=== PATIENT | female | born 1955 | race Caucasian/White ===

== ENCOUNTER 2018-05-13 07:07 | Day surgery (SDC) | payer OTHER ==
[~2018-05-13 07:07] MED LIST: METOCLOPRAMIDE 10 MG INJ; ONDANSETRON 4 MG INJ; SUGAMMADEX SODIUM 200 MG/2 ML VIAL IV
[2018-05-13] MEDS ORDERED: SOD CHLORIDE 0.9% 1,000 ML IV (09:30)
[2018-05-13] MEDS: CEFAZOLIN 2 GM/50 ML (PMX) 50 ML IVPB (09:30)
[2018-05-13] MEDS ORDERED: FENTAnyl 50 MCG/ML VIAL (12:18)
[2018-05-13] MEDS ORDERED: DEXAMETHASONE 4 MG/ML 1 ML INJ (12:19)
[2018-05-13] MEDS ORDERED: MIDAZOLAM 1 MG/ML 2 ML INJ (12:19)
[2018-05-13] MEDS ORDERED: LIDOCAINE 2% (SDV) 5 ML INJ (12:19)
[2018-05-13] MEDS ORDERED: PROPOFOL 20 ML (12:19)
[2018-05-13] MEDS ORDERED: CEFAZOLIN 1 GM INJ (12:20)
[2018-05-13] MEDS: BUPIVACAINE 0.25% (MPF) 30 ML INJ (13:34)
[2018-05-13] MEDS ORDERED: hydrALAzine 20 MG INJ IV (14:30)
[2018-05-13] MEDS ORDERED: IPRATROPIUM (NEB) 0.5 MG/2.5 ML AMP HHN (14:30)
[2018-05-13] MEDS ORDERED: LABETALOL HCL 20MG INJ IV (14:30)
[2018-05-13] MEDS ORDERED: FENTAnyl 50 MCG/ML VIAL IV ×2 (14:30)
[2018-05-13] MEDS ORDERED: METOCLOPRAMIDE 10 MG INJ IV (14:30)
[2018-05-13] MEDS ORDERED: HYDROmorphONE 1 MG/5 ML IV SYRINGE IV (14:30)
[2018-05-13] MEDS ORDERED: DIPHENHYDRAMINE 50 MG INJ IV (14:30)
[2018-05-13] MEDS ORDERED: MEPERIDINE 25 MG INJ IV (14:30)
[2018-05-13] MEDS: ONDANSETRON 4 MG INJ IV (14:34)
[2018-05-13] MEDS: HYDROmorphONE 1 MG/5 ML IV SYRINGE IV (14:34)
[2018-05-13] MEDS: HYDROCODONE/APAP (5/325) TAB PO (15:26)
== END 2018-05-13 16:06 | disposition home or self-care (01) ==
LOC: SDS 07:07
DX: K81.1 Chronic cholecystitis (principal); K21.9 Gastro-esophageal reflux disease without esophagitis; G62.9 Polyneuropathy, unspecified; Z87.891 Personal history of nicotine dependence
CPT/HCPCS: 47562; 88304

== ENCOUNTER 2019-03-03 17:30 | Inpatient (IN) | payer OTHER ==
[2019-03-03] MEDS: ONDANSETRON 4 MG INJ IV (21:43)
[2019-03-03] MEDS: SOD CHLORIDE 0.9% 500 ML IV (21:44)
[2019-03-03] MEDS: morphine 4 MG/ML VIAL IV (21:44)
[2019-03-03 21:49] LABS: ADD MAN DIFF? NO
[2019-03-03 21:55] LABS: BASOPHIL # 0.1 10^3/ul (0.0-0.1); BASOPHILS % 0.6 % (0.0-2.0); EOSINOPHILS # 0.1 10^3/ul (0.0-0.5); EOSINOPHILS % 0.5 % (0.0-7.0); HEMATOCRIT 38.5 % (37.0-47.0); HEMOGLOBIN 12.3 g/dl (12.0-16.0); LYMPHOCYTES # 1.6 10^3/ul (0.8-2.9); MEAN CORPUSCULAR HEMOGLOBIN 27.1 pg (29.0-33.0); MEAN CORPUSCULAR HGB CONC 31.9 g/dl (32.0-37.0); MEAN CORPUSCULAR VOLUME 84.8 fl (82.0-101.0); MONOCYTE # 1.5 10^3/ul (0.3-0.9); MONOCYTES % 11.1 % (0.0-11.0); NEUTROPHIL # 10.1 10^3/ul (1.6-7.5); NEUTROPHILS % 75.4 % (39.0-77.0); PLATELET COUNT 296 10^3/UL (140-415); RED BLOOD COUNT 4.54 10^6/ul (4.20-5.40); RED CELL DISTRIBUTION WIDTH 14.4 % (11.5-14.5)
[2019-03-03 21:55] LABS: WHITE BLOOD COUNT 13.5 10^3/ul (4.8-10.8)
[2019-03-03 22:03] LABS: ADD UMIC YES; UR ASCORBIC ACID NEGATIVE (NEGATIVE); UR BILIRUBIN (Dip) NEGATIVE (NEGATIVE); UR BLOOD (Dip) 1+ mg/dL (NEGATIVE); UR CLARITY CLEAR (CLEAR); UR COLOR AMBER (YELLOW); UR GLUCOSE (Dip) NEGATIVE (NEGATIVE); UR KETONES (Dip) TRACE mg/dL (NEGATIVE); UR LEUKOCYTE ESTERASE (Dip) NEGATIVE Leu/ul (NEGATIVE); UR MUCUS MODERATE /HPF (NONE SEEN); UR NITRITE (Dip) POSITIVE (NEGATIVE); UR RBC 3 /HPF (0-5); UR SPECIFIC GRAVITY (Dip) 1.014 (1.003-1.030); UR SQUAMOUS EPITHELIAL CELL FEW /HPF (FEW); UR TOTAL PROTEIN (Dip) NEGATIVE (NEGATIVE); UR UROBILINOGEN (Dip) 2+ mg/dL (NEGATIVE); UR WBC 8 /HPF (0-5)
[2019-03-03 22:14] LABS: ALBUMIN 4.4 g/dl (3.3-4.9); ALKALINE PHOSPHATASE 135 IU/L (42-121); ANION GAP 9 (5-13); ASPARTATE AMINO TRANSFERASE 25 IU/L (15-46); BILIRUBIN,INDIRECT 0.7 mg/dl (0-1.1); BILIRUBIN,TOTAL 0.7 mg/dl (0.2-1.3); BLOOD UREA NITROGEN 17 mg/dl (7-20); CALCIUM 10.1 mg/dl (8.4-10.2); CARBON DIOXIDE 27 mmol/L (21-31); CHLORIDE 105 mmol/L (97-110); CREATININE 0.81 mg/dl (0.44-1.00); Estimated GFR > 60 mL/min (>60); GLUCOSE 113 mg/dl (70-220); LIPASE 114 U/L (23-300); POTASSIUM 3.7 mmol/L (3.5-5.1); SODIUM 141 mmol/L (135-144); TOTAL PROTEIN 8.8 g/dl (6.1-8.1)
[2019-03-03 22:15] LABS: ALANINE AMINOTRANSFERASE < 6 IU/L (13-69)
[2019-03-03] MEDS: CEFTRIAXONE 1 GM/50 ML (PMX) 50 ML IVPB (23:41)
[2019-03-04] MEDS ORDERED: ONDANSETRON 4 MG INJ IV (01:30)
[2019-03-04] MEDS ORDERED: NACL 0.9% 3 ML SYG IV (01:30)
[2019-03-04] MEDS ORDERED: ACETAMINOPHEN 325 MG TAB PO (01:30)
[2019-03-04] MEDS: HYDROCODONE/APAP (5/325) TAB PO ×3 (01:50→21:08)
[2019-03-04] MEDS: HEPARIN 5,000 UNIT/1 ML VIAL SC ×2 (08:16→21:22)
[2019-03-04] MEDS: PANTOPRAZOLE (EC) 40 MG TAB PO (08:16)
[2019-03-04 08:29] LABS: ADD MAN DIFF? NO
[2019-03-04 08:44] LABS: BASOPHILS % 0.4 % (0.0-2.0); EOSINOPHILS # 0.2 10^3/ul (0.0-0.5); EOSINOPHILS % 1.5 % (0.0-7.0); HEMATOCRIT 36.9 % (37.0-47.0); HEMOGLOBIN 11.6 g/dl (12.0-16.0); LYMPHOCYTES # 1.4 10^3/ul (0.8-2.9); LYMPHOCYTES % 13.6 % (15.0-51.0); MEAN CORPUSCULAR HEMOGLOBIN 27.1 pg (29.0-33.0); MEAN CORPUSCULAR HGB CONC 31.4 g/dl (32.0-37.0); MEAN CORPUSCULAR VOLUME 86.2 fl (82.0-101.0); MEAN PLATELET VOLUME 10.2 fl (7.4-10.4); MONOCYTE # 1.2 10^3/ul (0.3-0.9); MONOCYTES % 11.9 % (0.0-11.0); NEUTROPHIL # 7.4 10^3/ul (1.6-7.5); PLATELET COUNT 260 10^3/UL (140-415); RED BLOOD COUNT 4.28 10^6/ul (4.20-5.40); RED CELL DISTRIBUTION WIDTH 14.6 % (11.5-14.5)
[2019-03-04 08:44] LABS: WHITE BLOOD COUNT 10.2 10^3/ul (4.8-10.8)
[2019-03-04 08:51] LABS: ALBUMIN 3.8 g/dl (3.3-4.9); ALKALINE PHOSPHATASE 120 IU/L (42-121); ANION GAP 8 (5-13); ASPARTATE AMINO TRANSFERASE 45 IU/L (15-46); BILIRUBIN,INDIRECT 0.6 mg/dl (0-1.1); BILIRUBIN,TOTAL 0.6 mg/dl (0.2-1.3); BLOOD UREA NITROGEN 16 mg/dl (7-20); CALCIUM 9.6 mg/dl (8.4-10.2); CARBON DIOXIDE 29 mmol/L (21-31); CHLORIDE 106 mmol/L (97-110); CHOL/HDL RATIO 4.3 RATIO; CHOLESTEROL 191 mg/dl (100-200); CREATININE 0.78 mg/dl (0.44-1.00); Estimated GFR > 60 mL/min (>60); GLUCOSE 109 mg/dl (70-220); HDL CHOLESTEROL 44 mg/dl (35-98); LDL CHOLESTEROL,CALCULATED 122 mg/dl; MAGNESIUM 2.2 mg/dl (1.7-2.5); PHOSPHORUS 4.1 mg/dl (2.5-4.9); POTASSIUM 3.8 mmol/L (3.5-5.1); SODIUM 143 mmol/L (135-144); TOTAL PROTEIN 7.6 g/dl (6.1-8.1); TRIGLYCERIDES 123 mg/dl (0-149)
[2019-03-04 09:06] LABS: ALANINE AMINOTRANSFERASE < 6 IU/L (13-69)
[2019-03-04 11:48] LABS: HEMOGLOBIN A1C 5.9 % (0-5.9)
[2019-03-04] MEDS: ATORVASTATIN 20 MG TAB PO (21:08)
[2019-03-05] MEDS: CEFTRIAXONE 1 GM/50 ML (PMX) 50 ML IVPB ×2 (00:34→09:04)
[2019-03-05 05:56] LABS: ADD MAN DIFF? NO
[2019-03-05 06:10] LABS: BASOPHIL # 0.1 10^3/ul (0.0-0.1); BASOPHILS % 0.6 % (0.0-2.0); EOSINOPHILS # 0.2 10^3/ul (0.0-0.5); EOSINOPHILS % 1.8 % (0.0-7.0); HEMATOCRIT 36.3 % (37.0-47.0); HEMOGLOBIN 11.5 g/dl (12.0-16.0); LYMPHOCYTES # 1.6 10^3/ul (0.8-2.9); LYMPHOCYTES % 15.4 % (15.0-51.0); MEAN CORPUSCULAR HEMOGLOBIN 27.2 pg (29.0-33.0); MEAN CORPUSCULAR HGB CONC 31.7 g/dl (32.0-37.0); MEAN CORPUSCULAR VOLUME 85.8 fl (82.0-101.0); MEAN PLATELET VOLUME 10.1 fl (7.4-10.4); MONOCYTE # 1.1 10^3/ul (0.3-0.9); MONOCYTES % 11.2 % (0.0-11.0); NEUTROPHIL # 7.2 10^3/ul (1.6-7.5); NEUTROPHILS % 70.6 % (39.0-77.0); PLATELET COUNT 280 10^3/UL (140-415); RED BLOOD COUNT 4.23 10^6/ul (4.20-5.40); RED CELL DISTRIBUTION WIDTH 14.6 % (11.5-14.5)
[2019-03-05 06:10] LABS: WHITE BLOOD COUNT 10.2 10^3/ul (4.8-10.8)
[2019-03-05 06:40] LABS: ANION GAP 7 (5-13); BLOOD UREA NITROGEN 14 mg/dl (7-20); CALCIUM 9.8 mg/dl (8.4-10.2); CARBON DIOXIDE 30 mmol/L (21-31); CHLORIDE 106 mmol/L (97-110); CREATININE 0.79 mg/dl (0.44-1.00); Estimated GFR > 60 mL/min (>60); GLUCOSE 115 mg/dl (70-220); MAGNESIUM 2.2 mg/dl (1.7-2.5); PHOSPHORUS 4.1 mg/dl (2.5-4.9); POTASSIUM 4.4 mmol/L (3.5-5.1); SODIUM 143 mmol/L (135-144)
[2019-03-05 07:05] LABS: CARCINOEMBRYONIC ANTIGEN 2.2 ng/ml (0.0-5.0)
[2019-03-05 07:09] LABS: CANCER ANTIGEN 19-9 6.9 U/ml (0.0-37.0)
[2019-03-05] MEDS: HEPARIN 5,000 UNIT/1 ML VIAL SC ×2 (09:00→20:24)
[2019-03-05] MEDS: PANTOPRAZOLE (EC) 40 MG TAB PO (09:00)
[2019-03-05] MEDS ORDERED: ONDANSETRON 4 MG INJ IV (15:30)
[2019-03-05] MEDS ORDERED: PROPOFOL 20 ML ×2 (15:42→15:59)
[2019-03-05] MEDS ORDERED: LIDOCAINE 2% (SDV) 5 ML INJ (15:42)
[2019-03-05] MEDS: morphine 2 MG INJ IV (16:21)
[2019-03-05] MEDS ORDERED: HYDROmorphONE 1 MG/5 ML IV SYRINGE IV (16:30)
[2019-03-05] MEDS: HYDROCODONE/APAP (5/325) TAB PO (18:25)
[2019-03-05] MEDS: ATORVASTATIN 20 MG TAB PO (20:18)
[2019-03-06] MEDS: morphine 2 MG INJ IV (02:50)
[2019-03-06] MEDS: CEFTRIAXONE 1 GM/50 ML (PMX) 50 ML IVPB (09:08)
[2019-03-06] MEDS: PANTOPRAZOLE (EC) 40 MG TAB PO ×2 (09:08→17:46)
[2019-03-06] MEDS: HEPARIN 5,000 UNIT/1 ML VIAL SC (09:10)
[2019-03-06 11:44] LABS: INR 0.91; PROTIME 12.4 Sec (11.9-14.9)
[2019-03-06] MEDS ORDERED: MAGNESIUM HYDROXIDE 30ML CUP PO (13:30)
[2019-03-06] MEDS: DOCUSATE SODIUM 100 MG CAP PO ×2 (13:44→20:50)
[2019-03-06] MEDS: SENNA TAB PO ×2 (13:44→20:50)
[2019-03-06] MEDS: HYDROCODONE/APAP (5/325) TAB PO ×2 (13:53→20:50)
[2019-03-06] MEDS: ATORVASTATIN 20 MG TAB PO (20:49)
[2019-03-07] MEDS: PANTOPRAZOLE (EC) 40 MG TAB PO ×2 (05:19→18:03)
[2019-03-07] MEDS: CEFTRIAXONE 1 GM/50 ML (PMX) 50 ML IVPB (08:42)
[2019-03-07] MEDS: SENNA TAB PO ×2 (08:48→20:53)
[2019-03-07] MEDS: DOCUSATE SODIUM 100 MG CAP PO ×2 (08:48→20:53)
[2019-03-07] MEDS: LIDOCAINE 1% (MPF) 5 ML VIAL (13:06)
[2019-03-07] MEDS: MIDAZOLAM 1 MG/ML 2 ML INJ (13:13)
[2019-03-07] MEDS: FENTAnyl 50 MCG/ML VIAL (13:15)
[2019-03-07] MEDS: SOD CHLORIDE 0.9% 500 ML (13:17)
[2019-03-07] MEDS: morphine 2 MG INJ IV (17:34)
[2019-03-07] MEDS: ATORVASTATIN 20 MG TAB PO (20:53)
[2019-03-08] MEDS: HYDROCODONE/APAP (5/325) TAB PO (01:39)
[2019-03-08] MEDS: PANTOPRAZOLE (EC) 40 MG TAB PO (06:03)
[2019-03-08] MEDS: CEFTRIAXONE 1 GM/50 ML (PMX) 50 ML IVPB ×2 (09:00→10:58)
[2019-03-08] MEDS: SENNA TAB PO (10:58)
[2019-03-08] MEDS: DOCUSATE SODIUM 100 MG CAP PO (10:58)
== END 2019-03-08 14:12 | disposition home or self-care (01) | DRG 842 ==
LOC: 2NE 03-04 00:28 → E/R 17:30 → 2NE 03-04 00:06
PROC: 0DB68ZX Excision of Stomach, Via Natural or Artificial Opening Endoscopic, Diagnostic (ICD-10-PCS; principal; 2019-03-05 15:15)
PROC: 0DBV3ZX Excision of Mesentery, Percutaneous Approach, Diagnostic (ICD-10-PCS; 2019-03-05 15:15)
DX: C85.93 Non-Hodgkin lymphoma, unspecified, intra-abdominal lymph nodes (principal); K29.50 Unspecified chronic gastritis without bleeding; E66.9 Obesity, unspecified; E78.5 Hyperlipidemia, unspecified; R63.4 Abnormal weight loss; K21.9 Gastro-esophageal reflux disease without esophagitis; R12 Heartburn; Z68.29 Body mass index [BMI] 29.0-29.9, adult; F17.210 Nicotine dependence, cigarettes, uncomplicated
CPT/HCPCS: 36415; 74176; 77012; 80048; 80053; 80061; 81001; 82378; 83036; 83690; 83735; 84100; 84443; 85025; 85610; 85730; 86301; 87086; 88305; 88307; 88312; 88313; 96374; 96375; 99285-25

== ENCOUNTER 2019-04-08 09:48 | Day surgery (SDC) | payer OTHER ==
[2019-04-08] MEDS: SOD CHLORIDE 0.9% 1,000 ML IV (12:01)
[2019-04-08] MEDS ORDERED: LIDOCAINE 1% (MPF) 5 ML VIAL ×2 (12:49→13:39)
[2019-04-08] MEDS ORDERED: FENTAnyl 50 MCG/ML VIAL (13:18)
== END 2019-04-08 15:45 | disposition home or self-care (01) ==
LOC: SDS 09:48
DX: K55.069 Acute infarction of intestine, part and extent unspecified (principal)
CPT/HCPCS: 49180; 77012; 88307; 88313

== ENCOUNTER 2019-05-02 09:50 | Inpatient (IN) | payer OTHER ==
[2019-05-02] MEDS: ONDANSETRON 4 MG INJ IV (10:20)
[2019-05-02] MEDS: morphine 4 MG/ML VIAL IV ×2 (10:20→11:54)
[2019-05-02 10:37] LABS: ADD MAN DIFF? NO
[2019-05-02 10:38] LABS: WHITE BLOOD COUNT 7.9 10^3/ul (4.8-10.8)
[2019-05-02 10:38] LABS: BASOPHILS % 0.5 % (0.0-2.0); EOSINOPHILS # 0.1 10^3/ul (0.0-0.5); EOSINOPHILS % 1.1 % (0.0-7.0); HEMATOCRIT 32.6 % (37.0-47.0); HEMOGLOBIN 10.5 g/dl (12.0-16.0); LYMPHOCYTES # 1.3 10^3/ul (0.8-2.9); LYMPHOCYTES % 16.1 % (15.0-51.0); MEAN CORPUSCULAR HEMOGLOBIN 27.1 pg (29.0-33.0); MEAN CORPUSCULAR HGB CONC 32.2 g/dl (32.0-37.0); MEAN CORPUSCULAR VOLUME 84.2 fl (82.0-101.0); MEAN PLATELET VOLUME 10.1 fl (7.4-10.4); MONOCYTE # 0.7 10^3/ul (0.3-0.9); MONOCYTES % 9.3 % (0.0-11.0); NEUTROPHIL # 5.7 10^3/ul (1.6-7.5); NEUTROPHILS % 72.7 % (39.0-77.0); PLATELET COUNT 228 10^3/UL (140-415); RED BLOOD COUNT 3.87 10^6/ul (4.20-5.40); RED CELL DISTRIBUTION WIDTH 14.7 % (11.5-14.5)
[2019-05-02 11:06] LABS: ANION GAP 8 (5-13); Estimated GFR > 60 mL/min (>60)
[2019-05-02 11:09] LABS: ALANINE AMINOTRANSFERASE 7 IU/L (13-69); ALBUMIN 3.9 g/dl (3.3-4.9); ALBUMIN/GLOBULIN RATIO 1.02; ALKALINE PHOSPHATASE 93 IU/L (42-121); ASPARTATE AMINO TRANSFERASE 19 IU/L (15-46); BILIRUBIN,INDIRECT 0.4 mg/dl (0-1.1); BILIRUBIN,TOTAL 0.4 mg/dl (0.2-1.3); BLOOD UREA NITROGEN 15 mg/dl (7-20); CALCIUM 9.2 mg/dl (8.4-10.2); CARBON DIOXIDE 29 mmol/L (21-31); CHLORIDE 107 mmol/L (97-110); CREATININE 0.63 mg/dl (0.44-1.00); GLUCOSE 99 mg/dl (70-220); LIPASE 192 U/L (23-300); POTASSIUM 4.1 mmol/L (3.5-5.1); SODIUM 144 mmol/L (135-144); TOTAL PROTEIN 7.7 g/dl (6.1-8.1)
[2019-05-02 11:37] LABS: ADD UMIC NO; UR ASCORBIC ACID NEGATIVE (NEGATIVE); UR BILIRUBIN (Dip) NEGATIVE (NEGATIVE); UR BLOOD (Dip) NEGATIVE (NEGATIVE); UR CLARITY CLEAR (CLEAR); UR COLOR YELLOW (YELLOW); UR GLUCOSE (Dip) NEGATIVE (NEGATIVE); UR KETONES (Dip) NEGATIVE (NEGATIVE); UR LEUKOCYTE ESTERASE (Dip) NEGATIVE Leu/ul (NEGATIVE); UR NITRITE (Dip) NEGATIVE (NEGATIVE); UR RBC 0 /HPF (0-5); UR SQUAMOUS EPITHELIAL CELL FEW /HPF (FEW); UR TOTAL PROTEIN (Dip) NEGATIVE (NEGATIVE); UR UROBILINOGEN (Dip) NEGATIVE (NEGATIVE); UR WBC 3 /HPF (0-5)
[2019-05-02] MEDS ORDERED: ACETAMINOPHEN 325 MG TAB PO ×3 (14:30→16:30)
[2019-05-02] MEDS ORDERED: ONDANSETRON 4 MG INJ IV ×2 (14:30)
[2019-05-02] MEDS: morphine 2 MG INJ IV ×3 (16:09→20:57)
[2019-05-02] MEDS: SOD CHLORIDE 0.9% 1,000 ML IV (16:23)
[2019-05-02] MEDS: FAMOTIDINE 20 MG INJ IV (20:57)
[2019-05-02] MEDS ORDERED: METHADONE (1 MG/1 ML PO SYG) PO (21:00)
[2019-05-02] MEDS ORDERED: METHADONE (1 MG/ML 5 ML PO UD SYG) (22:19)
[2019-05-02] MEDS: METHADONE (1 MG/ML 5 ML PO UD SYG) PO (22:22)
[2019-05-03] MEDS: morphine 2 MG INJ IV ×4 (02:25→19:53)
[2019-05-03] MEDS: METHADONE (1 MG/ML 5 ML PO UD SYG) PO ×6 (02:30→22:30)
[2019-05-03] MEDS: SOD CHLORIDE 0.9% 1,000 ML IV ×2 (05:30→17:58)
[2019-05-03 05:43] LABS: ADD MAN DIFF? NO
[2019-05-03 05:45] LABS: BASOPHIL # 0.1 10^3/ul (0.0-0.1); BASOPHILS % 0.7 % (0.0-2.0); EOSINOPHILS # 0.1 10^3/ul (0.0-0.5); EOSINOPHILS % 1.3 % (0.0-7.0); HEMOGLOBIN 10.9 g/dl (12.0-16.0); LYMPHOCYTES # 0.9 10^3/ul (0.8-2.9); LYMPHOCYTES % 11.7 % (15.0-51.0); MEAN CORPUSCULAR HEMOGLOBIN 26.9 pg (29.0-33.0); MEAN CORPUSCULAR HGB CONC 32.1 g/dl (32.0-37.0); MEAN PLATELET VOLUME 10.3 fl (7.4-10.4); MONOCYTE # 0.6 10^3/ul (0.3-0.9); MONOCYTES % 8.3 % (0.0-11.0); NEUTROPHILS % 77.7 % (39.0-77.0); PLATELET COUNT 229 10^3/UL (140-415); RED BLOOD COUNT 4.05 10^6/ul (4.20-5.40); RED CELL DISTRIBUTION WIDTH 14.6 % (11.5-14.5)
[2019-05-03 05:45] LABS: WHITE BLOOD COUNT 7.7 10^3/ul (4.8-10.8)
[2019-05-03 05:58] LABS: HEMOGLOBIN A1C 5.3 % (0-5.9)
[2019-05-03 06:27] LABS: FREE THYROXINE INDEX (Calc) 3.49 ug/ml (0.65-3.89); T3 UPTAKE 36.7 % (23.5-40.5); T4 (THYROXINE) 9.5 ug/dl (5.5-11.0)
[2019-05-03 06:32] LABS: ALANINE AMINOTRANSFERASE 38 IU/L (13-69); ALBUMIN 3.5 g/dl (3.3-4.9); ALBUMIN/GLOBULIN RATIO 1.09; ALKALINE PHOSPHATASE 229 IU/L (42-121); ANION GAP 10 (5-13); ASPARTATE AMINO TRANSFERASE 158 IU/L (15-46); BILIRUBIN,INDIRECT 0.7 mg/dl (0-1.1); BILIRUBIN,TOTAL 0.7 mg/dl (0.2-1.3); BLOOD UREA NITROGEN 13 mg/dl (7-20); CALCIUM 9.1 mg/dl (8.4-10.2); CARBON DIOXIDE 26 mmol/L (21-31); CHLORIDE 108 mmol/L (97-110); CHOLESTEROL 129 mg/dl (100-200); CREATININE 0.63 mg/dl (0.44-1.00); Estimated GFR > 60 mL/min (>60); GLUCOSE 90 mg/dl (70-220); HDL CHOLESTEROL 42 mg/dl (35-98); LDL CHOLESTEROL,CALCULATED 67 mg/dl; MAGNESIUM 2.1 mg/dl (1.7-2.5); PHOSPHORUS 4.2 mg/dl (2.5-4.9); POTASSIUM 4.2 mmol/L (3.5-5.1); SODIUM 144 mmol/L (135-144); TOTAL PROTEIN 6.7 g/dl (6.1-8.1); TRIGLYCERIDES 98 mg/dl (0-149)
[2019-05-03] MEDS: FAMOTIDINE 20 MG INJ IV ×2 (08:55→21:02)
[2019-05-03] MEDS: HYDROCODONE/APAP (5/325) TAB PO (22:29)
[2019-05-04] MEDS: METHADONE (1 MG/ML 5 ML PO UD SYG) PO ×6 (02:30→22:36)
[2019-05-04] MEDS: SOD CHLORIDE 0.9% 1,000 ML IV ×2 (05:44→17:33)
[2019-05-04] MEDS: FAMOTIDINE 20 MG INJ IV ×2 (09:12→20:40)
[2019-05-04] MEDS: HYDROCODONE/APAP (5/325) TAB PO (11:08)
[2019-05-04 11:20] LABS: ALANINE AMINOTRANSFERASE 19 IU/L (13-69); ALBUMIN 4.1 g/dl (3.3-4.9); ALBUMIN/GLOBULIN RATIO 1.05; ALKALINE PHOSPHATASE 216 IU/L (42-121); ANION GAP 10 (5-13); ASPARTATE AMINO TRANSFERASE 55 IU/L (15-46); BILIRUBIN,INDIRECT 0.5 mg/dl (0-1.1); BILIRUBIN,TOTAL 0.5 mg/dl (0.2-1.3); BLOOD UREA NITROGEN 12 mg/dl (7-20); CALCIUM 9.2 mg/dl (8.4-10.2); CARBON DIOXIDE 27 mmol/L (21-31); CHLORIDE 104 mmol/L (97-110); CREATININE 0.59 mg/dl (0.44-1.00); Estimated GFR > 60 mL/min (>60); GLUCOSE 104 mg/dl (70-220); POTASSIUM 3.8 mmol/L (3.5-5.1); SODIUM 141 mmol/L (135-144)
[2019-05-04 11:22] LABS: PROTIME 12.3 Sec (11.9-14.9)
[2019-05-04 11:23] LABS: PARTIAL THROMBOPLASTIN TIME 32.4 Sec (23.0-35.0)
[2019-05-04] MEDS: MINERAL OIL 30ML CUP PO ×3 (11:45→17:33)
[2019-05-04] MEDS: NA PHOSPHATE/BIPHOS 133 ML ENEMA PR (11:45)
[2019-05-04] MEDS: morphine 2 MG INJ IV ×2 (14:39→20:41)
[2019-05-04] MEDS: HEPARIN 5,000 UNIT/1 ML VIAL SC (20:41)
[2019-05-05] MEDS: MINERAL OIL 30ML CUP PO (00:01)
[2019-05-05] MEDS: METHADONE (1 MG/ML 5 ML PO UD SYG) PO ×4 (02:30→14:26)
[2019-05-05] MEDS: morphine 2 MG INJ IV ×2 (04:37→08:55)
[2019-05-05] MEDS: SOD CHLORIDE 0.9% 1,000 ML IV (04:38)
[2019-05-05 06:04] LABS: ADD MAN DIFF? NO
[2019-05-05 06:16] LABS: BASOPHIL # 0.1 10^3/ul (0.0-0.1); BASOPHILS % 0.6 % (0.0-2.0); EOSINOPHILS # 0.2 10^3/ul (0.0-0.5); EOSINOPHILS % 2.7 % (0.0-7.0); HEMATOCRIT 34.6 % (37.0-47.0); HEMOGLOBIN 11.1 g/dl (12.0-16.0); LYMPHOCYTES # 1.2 10^3/ul (0.8-2.9); LYMPHOCYTES % 14.7 % (15.0-51.0); MEAN CORPUSCULAR HEMOGLOBIN 26.6 pg (29.0-33.0); MEAN CORPUSCULAR HGB CONC 32.1 g/dl (32.0-37.0); MEAN PLATELET VOLUME 10.5 fl (7.4-10.4); MONOCYTE # 0.9 10^3/ul (0.3-0.9); MONOCYTES % 11.9 % (0.0-11.0); NEUTROPHIL # 5.5 10^3/ul (1.6-7.5); NEUTROPHILS % 69.7 % (39.0-77.0); PLATELET COUNT 240 10^3/UL (140-415); RED BLOOD COUNT 4.17 10^6/ul (4.20-5.40); RED CELL DISTRIBUTION WIDTH 14.6 % (11.5-14.5)
[2019-05-05 06:16] LABS: WHITE BLOOD COUNT 7.8 10^3/ul (4.8-10.8)
[2019-05-05 06:49] LABS: ANION GAP 9 (5-13); BLOOD UREA NITROGEN 9 mg/dl (7-20); CALCIUM 8.9 mg/dl (8.4-10.2); CARBON DIOXIDE 28 mmol/L (21-31); CHLORIDE 106 mmol/L (97-110); CREATININE 0.62 mg/dl (0.44-1.00); Estimated GFR > 60 mL/min (>60); GLUCOSE 102 mg/dl (70-220); POTASSIUM 3.7 mmol/L (3.5-5.1); SODIUM 143 mmol/L (135-144)
[2019-05-05] MEDS: FAMOTIDINE 20 MG INJ IV ×2 (08:09→21:08)
[2019-05-05] MEDS: HEPARIN 5,000 UNIT/1 ML VIAL SC (08:10)
[2019-05-05] MEDS: ONDANSETRON 4 MG INJ IV (11:09)
[2019-05-05] MEDS ORDERED: ONDANSETRON 4 MG INJ IV (13:30)
[2019-05-05] MEDS ORDERED: PROPOFOL 20 ML (13:31)
[2019-05-05] MEDS ORDERED: ROCURONIUM 50 MG INJ (13:31)
[2019-05-05] MEDS ORDERED: SUCCINYLCHOLINE CHLORIDE 100 MG/5 ML SYG IV (13:31)
[2019-05-05] MEDS ORDERED: ONDANSETRON 4 MG INJ (13:32)
[2019-05-05] MEDS ORDERED: MIDAZOLAM 1 MG/ML 2 ML INJ (13:32)
[2019-05-05] MEDS ORDERED: KETOROLAC 30 MG INJ ×2 (13:32→14:57)
[2019-05-05] MEDS ORDERED: CEFAZOLIN 1 GM INJ (13:34)
[2019-05-05] MEDS ORDERED: metroNIDAZOLE 500 MG/NS (PMX) 100 ML IVPB (13:46)
[2019-05-05] MEDS ORDERED: NEOSTIGMINE 3 MG/3 ML SYRINGE (15:08)
[2019-05-05] MEDS ORDERED: GLYCOPYRROLATE 0.4 MG INJ (15:08)
[2019-05-05] MEDS: HYDROmorphONE 1 MG/5 ML IV SYRINGE IV ×2 (15:54→16:01)
[2019-05-05] MEDS: FENTAnyl 50 MCG/ML VIAL IV ×2 (15:54→16:00)
[2019-05-05] MEDS ORDERED: ACETAMINOPHEN 325 MG TAB PO (16:00)
[2019-05-05] MEDS ORDERED: NALOXONE (0.4 MG/ML) INJ IV (16:00)
[2019-05-05] MEDS: morphine 1 MG/ML 30 ML (PCA) IV (16:32)
[2019-05-05] MEDS: D5W-0.45 NACL + KCL 20 MEQ 1,000 ML IV (16:54)
[2019-05-05] MEDS: CEFAZOLIN 2 GM/50 ML (PMX) 50 ML IVPB (16:54)
[2019-05-05] MEDS: metroNIDAZOLE 500 MG/NS (PMX) 100 ML IVPB (17:38)
[2019-05-06] MEDS: CEFAZOLIN 2 GM/50 ML (PMX) 50 ML IVPB ×2 (00:02→08:19)
[2019-05-06] MEDS: metroNIDAZOLE 500 MG/NS (PMX) 100 ML IVPB ×2 (00:43→08:58)
[2019-05-06 06:11] LABS: ADD MAN DIFF? NO
[2019-05-06] MEDS: D5W-0.45 NACL + KCL 20 MEQ 1,000 ML IV ×3 (06:15→17:36)
[2019-05-06 06:17] LABS: WHITE BLOOD COUNT 11.5 10^3/ul (4.8-10.8)
[2019-05-06 06:17] LABS: BASOPHILS % 0.3 % (0.0-2.0); EOSINOPHILS % 0.3 % (0.0-7.0); HEMATOCRIT 35.6 % (37.0-47.0); HEMOGLOBIN 11.4 g/dl (12.0-16.0); LYMPHOCYTES # 0.7 10^3/ul (0.8-2.9); LYMPHOCYTES % 6.1 % (15.0-51.0); MEAN CORPUSCULAR HEMOGLOBIN 26.6 pg (29.0-33.0); MEAN CORPUSCULAR VOLUME 83.2 fl (82.0-101.0); MEAN PLATELET VOLUME 10.1 fl (7.4-10.4); MONOCYTES % 8.7 % (0.0-11.0); NEUTROPHIL # 9.7 10^3/ul (1.6-7.5); NEUTROPHILS % 84.3 % (39.0-77.0); PLATELET COUNT 257 10^3/UL (140-415); RED BLOOD COUNT 4.28 10^6/ul (4.20-5.40); RED CELL DISTRIBUTION WIDTH 14.5 % (11.5-14.5)
[2019-05-06 06:45] LABS: MAGNESIUM 1.8 mg/dl (1.7-2.5)
[2019-05-06 06:45] LABS: PHOSPHORUS 4.1 mg/dl (2.5-4.9)
[2019-05-06 06:54] LABS: ANION GAP 8 (5-13); BLOOD UREA NITROGEN 7 mg/dl (7-20); CALCIUM 8.7 mg/dl (8.4-10.2); CARBON DIOXIDE 27 mmol/L (21-31); CHLORIDE 103 mmol/L (97-110); CREATININE 0.59 mg/dl (0.44-1.00); Estimated GFR > 60 mL/min (>60); GLUCOSE 132 mg/dl (70-220); POTASSIUM 3.7 mmol/L (3.5-5.1); SODIUM 138 mmol/L (135-144)
[2019-05-06] MEDS: FAMOTIDINE 20 MG INJ IV ×2 (08:18→21:06)
[2019-05-06] MEDS: morphine 1 MG/ML 30 ML (PCA) IV ×2 (08:26→23:08)
[2019-05-06] MEDS: ONDANSETRON 4 MG INJ IV (11:25)
[2019-05-06 13:50] LABS: HAAIG REFLEX REFLEX FILED
[2019-05-06 13:59] LABS: URIC ACID 3.7 mg/dl (3.1-7.9)
[2019-05-06 13:59] LABS: LACTATE DEHYDROGENASE 1124 IU/L (313-618)
[2019-05-06] MEDS: KETOROLAC 30 MG INJ IV ×2 (14:03→22:26)
[2019-05-06 23:11] LABS: HEPATITIS B SURFACE ANTIGEN NEGATIVE (NEGATIVE)
[2019-05-06 23:29] LABS: HEPATITIS B CORE ANTIBODY NEGATIVE (NEGATIVE); HEPATITIS C VIRAL ANTIBODY NEGATIVE (NEGATIVE)
[2019-05-07] MEDS: D5W-0.45 NACL + KCL 20 MEQ 1,000 ML IV ×2 (05:02→17:50)
[2019-05-07 06:28] LABS: ADD MAN DIFF? NO
[2019-05-07 06:29] LABS: BASOPHILS % 0.3 % (0.0-2.0); EOSINOPHILS # 0.4 10^3/ul (0.0-0.5); EOSINOPHILS % 3.5 % (0.0-7.0); HEMATOCRIT 32.3 % (37.0-47.0); HEMOGLOBIN 10.4 g/dl (12.0-16.0); LYMPHOCYTES # 0.7 10^3/ul (0.8-2.9); LYMPHOCYTES % 6.6 % (15.0-51.0); MEAN CORPUSCULAR HEMOGLOBIN 27.2 pg (29.0-33.0); MEAN CORPUSCULAR HGB CONC 32.2 g/dl (32.0-37.0); MEAN CORPUSCULAR VOLUME 84.6 fl (82.0-101.0); MONOCYTE # 1.2 10^3/ul (0.3-0.9); MONOCYTES % 11.1 % (0.0-11.0); NEUTROPHIL # 8.6 10^3/ul (1.6-7.5); NEUTROPHILS % 78.1 % (39.0-77.0); PLATELET COUNT 249 10^3/UL (140-415); RED BLOOD COUNT 3.82 10^6/ul (4.20-5.40); RED CELL DISTRIBUTION WIDTH 14.6 % (11.5-14.5)
[2019-05-07 06:55] LABS: ANION GAP 7 (5-13); BLOOD UREA NITROGEN 9 mg/dl (7-20); CALCIUM 8.6 mg/dl (8.4-10.2); CARBON DIOXIDE 29 mmol/L (21-31); CHLORIDE 103 mmol/L (97-110); CREATININE 0.57 mg/dl (0.44-1.00); Estimated GFR > 60 mL/min (>60); GLUCOSE 119 mg/dl (70-220); SODIUM 139 mmol/L (135-144)
[2019-05-07 06:58] LABS: PHOSPHORUS 3.1 mg/dl (2.5-4.9)
[2019-05-07 06:58] LABS: MAGNESIUM 1.9 mg/dl (1.7-2.5)
[2019-05-07] MEDS: FAMOTIDINE 20 MG INJ IV ×2 (08:57→20:44)
[2019-05-07] MEDS: morphine 1 MG/ML 30 ML (PCA) IV (11:54)
[2019-05-07] MEDS: KETOROLAC 30 MG INJ IV ×2 (15:57→23:07)
[2019-05-08] MEDS: morphine 1 MG/ML 30 ML (PCA) IV ×2 (02:43→21:41)
[2019-05-08] MEDS: D5W-0.45 NACL + KCL 20 MEQ 1,000 ML IV ×2 (04:03→14:07)
[2019-05-08 06:38] LABS: ADD MAN DIFF? NO
[2019-05-08 06:42] LABS: WHITE BLOOD COUNT 7.6 10^3/ul (4.8-10.8)
[2019-05-08 06:42] LABS: ABNORMAL IP MESSAGE 1; BASOPHILS % 0.3 % (0.0-2.0); EOSINOPHILS # 0.4 10^3/ul (0.0-0.5); EOSINOPHILS % 5.8 % (0.0-7.0); HEMATOCRIT 31.7 % (37.0-47.0); LYMPHOCYTES # 0.6 10^3/ul (0.8-2.9); LYMPHOCYTES % 7.7 % (15.0-51.0); MEAN CORPUSCULAR HGB CONC 31.5 g/dl (32.0-37.0); MEAN CORPUSCULAR VOLUME 85.7 fl (82.0-101.0); MEAN PLATELET VOLUME 10.3 fl (7.4-10.4); MONOCYTES % 12.7 % (0.0-11.0); NEUTROPHIL # 5.5 10^3/ul (1.6-7.5); PLATELET COUNT 254 10^3/UL (140-415); RED CELL DISTRIBUTION WIDTH 14.6 % (11.5-14.5)
[2019-05-08 07:03] LABS: POSITIVE DIFF @See below
[2019-05-08 07:52] LABS: PHOSPHORUS 3.3 mg/dl (2.5-4.9)
[2019-05-08 08:05] LABS: ANION GAP 6 (5-13); BLOOD UREA NITROGEN 10 mg/dl (7-20); CALCIUM 8.6 mg/dl (8.4-10.2); CARBON DIOXIDE 29 mmol/L (21-31); CHLORIDE 105 mmol/L (97-110); CREATININE 0.56 mg/dl (0.44-1.00); Estimated GFR > 60 mL/min (>60); GLUCOSE 111 mg/dl (70-220); POTASSIUM 4.5 mmol/L (3.5-5.1); SODIUM 140 mmol/L (135-144)
[2019-05-08] MEDS: FAMOTIDINE 20 MG INJ IV ×2 (08:41→21:48)
[2019-05-08] MEDS: KETOROLAC 30 MG INJ IV ×2 (13:35→22:02)
[2019-05-09] MEDS: D5W-0.45 NACL + KCL 20 MEQ 1,000 ML IV ×4 (00:34→23:19)
[2019-05-09 06:05] LABS: ADD MAN DIFF? NO
[2019-05-09 06:15] LABS: BASOPHILS % 0.4 % (0.0-2.0); EOSINOPHILS # 0.5 10^3/ul (0.0-0.5); EOSINOPHILS % 8.1 % (0.0-7.0); HEMOGLOBIN 10.3 g/dl (12.0-16.0); LYMPHOCYTES # 0.7 10^3/ul (0.8-2.9); LYMPHOCYTES % 12.5 % (15.0-51.0); MEAN CORPUSCULAR HEMOGLOBIN 26.7 pg (29.0-33.0); MEAN CORPUSCULAR HGB CONC 32.2 g/dl (32.0-37.0); MEAN CORPUSCULAR VOLUME 82.9 fl (82.0-101.0); MEAN PLATELET VOLUME 9.9 fl (7.4-10.4); MONOCYTE # 0.7 10^3/ul (0.3-0.9); MONOCYTES % 12.9 % (0.0-11.0); NEUTROPHIL # 3.7 10^3/ul (1.6-7.5); NEUTROPHILS % 65.7 % (39.0-77.0); PLATELET COUNT 291 10^3/UL (140-415); RED BLOOD COUNT 3.86 10^6/ul (4.20-5.40); RED CELL DISTRIBUTION WIDTH 14.6 % (11.5-14.5)
[2019-05-09 06:15] LABS: WHITE BLOOD COUNT 5.6 10^3/ul (4.8-10.8)
[2019-05-09 06:33] LABS: ANION GAP 5 (5-13); BLOOD UREA NITROGEN 7 mg/dl (7-20); CALCIUM 8.8 mg/dl (8.4-10.2); CARBON DIOXIDE 32 mmol/L (21-31); CHLORIDE 104 mmol/L (97-110); CREATININE 0.58 mg/dl (0.44-1.00); Estimated GFR > 60 mL/min (>60); GLUCOSE 116 mg/dl (70-220); POTASSIUM 4.8 mmol/L (3.5-5.1); SODIUM 141 mmol/L (135-144)
[2019-05-09 06:41] LABS: MAGNESIUM 1.9 mg/dl (1.7-2.5)
[2019-05-09 06:41] LABS: PHOSPHORUS 3.7 mg/dl (2.5-4.9)
[2019-05-09] MEDS: FAMOTIDINE 20 MG INJ IV ×2 (08:01→20:24)
[2019-05-09] MEDS: KETOROLAC 30 MG INJ IV (08:01)
[2019-05-09] MEDS: morphine 2 MG INJ IV (13:37)
[2019-05-09] MEDS: morphine 4 MG/ML VIAL IV ×2 (17:20→22:06)
[2019-05-09] MEDS: ONDANSETRON 4 MG INJ IV (17:23)
[2019-05-09] MEDS: ATORVASTATIN 20 MG TAB PO (20:24)
[2019-05-10 06:15] LABS: ADD MAN DIFF? NO
[2019-05-10 06:18] LABS: WHITE BLOOD COUNT 5.3 10^3/ul (4.8-10.8)
[2019-05-10 06:18] LABS: BASOPHILS % 0.6 % (0.0-2.0); EOSINOPHILS # 0.4 10^3/ul (0.0-0.5); EOSINOPHILS % 7.7 % (0.0-7.0); HEMATOCRIT 32.1 % (37.0-47.0); HEMOGLOBIN 10.3 g/dl (12.0-16.0); LYMPHOCYTES # 0.9 10^3/ul (0.8-2.9); LYMPHOCYTES % 16.9 % (15.0-51.0); MEAN CORPUSCULAR HEMOGLOBIN 26.7 pg (29.0-33.0); MEAN CORPUSCULAR HGB CONC 32.1 g/dl (32.0-37.0); MEAN CORPUSCULAR VOLUME 83.2 fl (82.0-101.0); MEAN PLATELET VOLUME 9.5 fl (7.4-10.4); MONOCYTE # 0.8 10^3/ul (0.3-0.9); MONOCYTES % 15.4 % (0.0-11.0); NEUTROPHIL # 3.1 10^3/ul (1.6-7.5); NEUTROPHILS % 58.6 % (39.0-77.0); PLATELET COUNT 307 10^3/UL (140-415); RED BLOOD COUNT 3.86 10^6/ul (4.20-5.40); RED CELL DISTRIBUTION WIDTH 14.4 % (11.5-14.5)
[2019-05-10 06:48] LABS: PHOSPHORUS 3.9 mg/dl (2.5-4.9)
[2019-05-10 06:48] LABS: MAGNESIUM 1.9 mg/dl (1.7-2.5)
[2019-05-10 06:49] LABS: ANION GAP 5 (5-13); BLOOD UREA NITROGEN 5 mg/dl (7-20); CARBON DIOXIDE 29 mmol/L (21-31); CHLORIDE 106 mmol/L (97-110); CREATININE 0.62 mg/dl (0.44-1.00); Estimated GFR > 60 mL/min (>60); GLUCOSE 123 mg/dl (70-220); POTASSIUM 4.2 mmol/L (3.5-5.1); SODIUM 140 mmol/L (135-144)
[2019-05-10] MEDS: FAMOTIDINE 20 MG INJ IV ×2 (09:16→20:16)
[2019-05-10] MEDS: D5W-0.45 NACL + KCL 20 MEQ 1,000 ML IV ×2 (09:16→19:00)
[2019-05-10] MEDS: morphine 4 MG/ML VIAL IV ×3 (10:27→22:46)
[2019-05-10] MEDS: ATORVASTATIN 20 MG TAB PO (20:16)
[2019-05-11] MEDS: D5W-0.45 NACL + KCL 20 MEQ 1,000 ML IV (05:45)
[2019-05-11] MEDS: FAMOTIDINE 20 MG INJ IV ×2 (08:47→20:10)
[2019-05-11] MEDS: morphine 2 MG INJ IV ×3 (10:26→20:11)
[2019-05-11] MEDS: MAGNESIUM HYDROXIDE 30ML CUP PO (12:01)
[2019-05-11] MEDS: ATORVASTATIN 20 MG TAB PO (20:10)
[2019-05-12 07:29] LABS: ADD MAN DIFF? NO
[2019-05-12 07:39] LABS: BASOPHIL # 0.1 10^3/ul (0.0-0.1); BASOPHILS % 0.8 % (0.0-2.0); EOSINOPHILS # 0.6 10^3/ul (0.0-0.5); EOSINOPHILS % 6.7 % (0.0-7.0); HEMATOCRIT 34.1 % (37.0-47.0); LYMPHOCYTES % 10.9 % (15.0-51.0); MEAN CORPUSCULAR HEMOGLOBIN 26.5 pg (29.0-33.0); MEAN CORPUSCULAR HGB CONC 32.3 g/dl (32.0-37.0); MEAN CORPUSCULAR VOLUME 82.2 fl (82.0-101.0); MEAN PLATELET VOLUME 9.7 fl (7.4-10.4); MONOCYTE # 1.1 10^3/ul (0.3-0.9); MONOCYTES % 12.4 % (0.0-11.0); NEUTROPHILS % 68.6 % (39.0-77.0); PLATELET COUNT 361 10^3/UL (140-415); RED BLOOD COUNT 4.15 10^6/ul (4.20-5.40); RED CELL DISTRIBUTION WIDTH 14.7 % (11.5-14.5)
[2019-05-12 07:39] LABS: WHITE BLOOD COUNT 8.7 10^3/ul (4.8-10.8)
[2019-05-12 07:58] LABS: ANION GAP 8 (5-13); BLOOD UREA NITROGEN 11 mg/dl (7-20); CALCIUM 9.3 mg/dl (8.4-10.2); CARBON DIOXIDE 30 mmol/L (21-31); CHLORIDE 103 mmol/L (97-110); Estimated GFR > 60 mL/min (>60); GLUCOSE 102 mg/dl (70-220); POTASSIUM 4.6 mmol/L (3.5-5.1); SODIUM 141 mmol/L (135-144)
[2019-05-12 08:00] LABS: MAGNESIUM 2.2 mg/dl (1.7-2.5)
[2019-05-12 08:00] LABS: PHOSPHORUS 4.9 mg/dl (2.5-4.9)
[2019-05-12] MEDS: FAMOTIDINE 20 MG INJ IV ×2 (08:50→20:37)
[2019-05-12] MEDS: morphine 2 MG INJ IV ×3 (08:50→20:38)
[2019-05-12 15:47] LABS: LACTATE DEHYDROGENASE 574 IU/L (313-618)
[2019-05-12 16:10] LABS: HIV 1&2 ANTIBODY NEGATIVE (NEGATIVE)
[2019-05-12] MEDS: ATORVASTATIN 20 MG TAB PO (20:37)
[2019-05-12] MEDS: NACL 0.9% 3 ML SYG IV (20:42)
[2019-05-13] MEDS: morphine 2 MG INJ IV ×2 (01:14→08:06)
[2019-05-13 07:42] LABS: ADD MAN DIFF? NO
[2019-05-13 07:52] LABS: BASOPHIL # 0.1 10^3/ul (0.0-0.1); EOSINOPHILS # 0.7 10^3/ul (0.0-0.5); EOSINOPHILS % 8.8 % (0.0-7.0); HEMATOCRIT 35.2 % (37.0-47.0); HEMOGLOBIN 11.3 g/dl (12.0-16.0); LYMPHOCYTES # 1.2 10^3/ul (0.8-2.9); MEAN CORPUSCULAR HEMOGLOBIN 26.4 pg (29.0-33.0); MEAN CORPUSCULAR HGB CONC 32.1 g/dl (32.0-37.0); MEAN CORPUSCULAR VOLUME 82.2 fl (82.0-101.0); MEAN PLATELET VOLUME 9.9 fl (7.4-10.4); NEUTROPHILS % 62.3 % (39.0-77.0); PLATELET COUNT 387 10^3/UL (140-415); RED BLOOD COUNT 4.28 10^6/ul (4.20-5.40); RED CELL DISTRIBUTION WIDTH 14.6 % (11.5-14.5)
[2019-05-13 07:52] LABS: WHITE BLOOD COUNT 8.1 10^3/ul (4.8-10.8)
[2019-05-13 08:05] LABS: PHOSPHORUS 4.8 mg/dl (2.5-4.9)
[2019-05-13 08:05] LABS: MAGNESIUM 2.4 mg/dl (1.7-2.5)
[2019-05-13] MEDS: FAMOTIDINE 20 MG INJ IV (08:05)
[2019-05-13 08:14] LABS: ANION GAP 8 (5-13); BLOOD UREA NITROGEN 16 mg/dl (7-20); CALCIUM 9.1 mg/dl (8.4-10.2); CARBON DIOXIDE 28 mmol/L (21-31); CHLORIDE 104 mmol/L (97-110); CREATININE 0.66 mg/dl (0.44-1.00); Estimated GFR > 60 mL/min (>60); GLUCOSE 94 mg/dl (70-220); POTASSIUM 4.5 mmol/L (3.5-5.1); SODIUM 140 mmol/L (135-144)
[2019-05-13 08:43] LABS: HIV 1&2 ANTIBODY NEGATIVE (NEGATIVE)
[2019-05-13] MEDS ORDERED: LIDOCAINE 1% (MDV) 20 ML INJ (10:46)
[2019-05-13] MEDS ORDERED: MIDAZOLAM 1 MG/ML 2 ML INJ (10:46)
[2019-05-13] MEDS ORDERED: FENTAnyl 50 MCG/ML VIAL (10:46)
[2019-05-13] MEDS ORDERED: CEFAZOLIN 1 GM/50 ML (PMX) 50 ML IVPB (11:21)
[2019-05-13] MEDS ORDERED: LIDOCAINE 1%/EPI (1:100,000) (MDV) 20 ML (11:30)
[2019-05-13] MEDS ORDERED: OXYCODONE/ACETAMINOPHEN (5/325) TAB PO (11:30)
[2019-05-13] MEDS ORDERED: POLYMYXIN/BACITRACIN 1L IRRIG ×2 (11:34→12:05)
[2019-05-13] MEDS: morphine 4 MG/ML VIAL IV (12:49)
== END 2019-05-13 14:40 | disposition home or self-care (01) | DRG 825 ==
LOC: E/R 09:50 → PP2 14:11
PROC: 0DBV0ZX Excision of Mesentery, Open Approach, Diagnostic (ICD-10-PCS; principal; 2019-05-05 13:37)
PROC: 0JH60WZ Insertion of Totally Implantable Vascular Access Device into Chest Subcutaneous Tissue and Fascia, Open Approach (ICD-10-PCS; 2019-05-05 13:37)
PROC: 02H633Z Insertion of Infusion Device into Right Atrium, Percutaneous Approach (ICD-10-PCS; 2019-05-05 13:37)
PROC: B214YZZ Fluoroscopy of Right Heart using Other Contrast (ICD-10-PCS; 2019-05-05 13:37)
PROC: B543ZZA Ultrasonography of Right Jugular Veins, Guidance (ICD-10-PCS; 2019-05-05 13:37)
DX: C83.30 Diffuse large B-cell lymphoma, unspecified site (principal); K21.9 Gastro-esophageal reflux disease without esophagitis; E66.9 Obesity, unspecified; F17.200 Nicotine dependence, unspecified, uncomplicated; D64.9 Anemia, unspecified; E78.5 Hyperlipidemia, unspecified; Z87.11 Personal history of peptic ulcer disease; Z90.49 Acquired absence of other specified parts of digestive tract
CPT/HCPCS: 36415; 71045; 74176; 76881-LT; 80048; 80053; 80061; 81003; 83036; 83615; 83690; 83735; 84100; 84436; 84443; 84479; 84560; 85025; 85610; 85730; 86703; 86704; 86709; 86803; 87070; 87075; 87086; 87340; 88307; 88313; 88341; 88342; 93005; 93306; 96374; 96375; 96376; 97162; 99285-25